=== PATIENT | female | born 1950 | race Two or more races ===

== ENCOUNTER 2025-02-23 16:28 | Emergency (ER) | payer OTHER, MEDICAID ==
[~2025-02-23] VITALS: Ht 154.9 cm; Wt 72.6 kg
[2025-02-23 17:28] LABS: HEMATOCRIT 35 % (33-45); LYMPHOCYTES # (AUTO) 1.2 K/uL (0.8-4.8); LYMPHOCYTES % (AUTO) 25.6 % (20.0-44.0); MEAN CORPUSCULAR HEMOGLOBIN 24 PG (26.0-33.0); MEAN CORPUSCULAR HGB CONC 32 g/dl (31.0-36.0); MEAN CORPUSCULAR VOLUME 75 fL (82-100); MONOCYTES # (AUTO) 0.3 K/uL (0.1-1.30); MONOCYTES % (AUTO) 6.3 % (2.0-12.0); NEUTROPHILS # (AUTO) 3.1 K/uL (1.8-8.9); NEUTROPHILS % (AUTO) 66.1 % (43.0-81.0); PLATELET COUNT (AUTO) 219 K/uL (150-450); RED CELL DISTRIBUTION WIDTH 18.6 % (11.5-15.0); WHITE BLOOD COUNT (AUTO) 4.7 K/uL (4.3-11.0)
[2025-02-23] MEDS ORDERED: MORPHINE SULFATE INJ 4 MG/ML DISP.SYRIN ONE (17:32)
[2025-02-23] MEDS: MORPHINE SULFATE INJ 2 MG/ML DISP.SYRIN IV ONE (17:37)
[2025-02-23 17:42] LABS: INR 1.13 (0.91-1.10); PARTIAL THROMBOPLASTIN TIME 43.1 SEC (24.3-34.3); PROTHROMBIN TIME 11.9 SECS (9.2-11.1)
[2025-02-23 17:51] LABS: ALANINE AMINOTRANSFERASE 15 U/L (12-78); ALBUMIN 3.5 g/dL (3.4-5.0); ALKALINE PHOSPHATASE 82 U/L (46-116); ASPARTATE AMINOTRANSFERASE 12 U/L (15-37); BILIRUBIN,DIRECT 0.1 mg/dL (0.0-0.2); BILIRUBIN,TOTAL 0.3 mg/dL (0.2-1.0); CALCIUM, SERUM 8.7 mg/dL (8.5-10.1); CARBON DIOXIDE 27 mmol/L (21-32); CHLORIDE 106 mmol/L (98-107); GLUCOSE 102 mg/dL (74-106); NT-PRO BNP 2493 pg/mL (0-125); POTASSIUM 3.8 mmol/L (3.5-5.1); SODIUM SERUM 141 mmol/L (136-145); TOTAL PROTEIN, SERUM 7.1 g/dL (6.4-8.2); UREA NITROGEN, BLOOD 24 mg/dL (7-18)
[2025-02-23] MEDS ORDERED: FUROSEMIDE 40 MG/4 ML VIAL ONE (18:32)
[2025-02-23] MEDS ORDERED: LORAZEPAM INJ 2 MG/ML VIAL ONE (18:34)
[2025-02-23] MEDS: LORAZEPAM INJ 2 MG/ML VIAL IV ONE (18:45)
[2025-02-23] MEDS: FUROSEMIDE 40 MG/4 ML VIAL IV ONE (18:45)
[2025-02-23] MEDS ORDERED: TROS20TA3 PO (18:48)
[2025-02-23] MEDS ORDERED: PANT20TA17 PO (18:48)
[2025-02-23] MEDS ORDERED: SENN-261 PO (18:48)
[2025-02-23] MEDS ORDERED: DULO30CA52 PO (18:48)
[2025-02-23] MEDS ORDERED: LORA-258 PO (18:48)
[2025-02-23] MEDS ORDERED: TRAZ-182 PO (18:48)
[2025-02-23] MEDS ORDERED: BUSP10TA3 PO (18:48)
[2025-02-23] MEDS ORDERED: CARB-273 EACHEYE (18:48)
[2025-02-23] MEDS ORDERED: AMLO-212 PO (18:48)
[2025-02-23] MEDS ORDERED: LIDO30CR47 TP (18:48)
[2025-02-23] MEDS ORDERED: SIME80TA15 PO (18:48)
[2025-02-23] MEDS ORDERED: ESCI5TAB PO (18:48)
[2025-02-23] MEDS ORDERED: BUSP10TA35 PO (18:48)
[2025-02-23] MEDS ORDERED: EMPA25TA PO (18:48)
[2025-02-23] MEDS ORDERED: DICL100G34 TP (18:48)
[2025-02-23] MEDS ORDERED: ACET500C4 PO ×2 (18:48)
[2025-02-23] MEDS ORDERED: MECL-159 PO (18:48)
[2025-02-23] MEDS ORDERED: DABI150C PO (18:48)
[2025-02-23] MEDS ORDERED: CHOL200010 PO (18:48)
[2025-02-23] MEDS ORDERED: LOSA25TA27 PO (18:48)
[2025-02-23] MEDS ORDERED: KETO5DRO72 EACHEYE (18:48)
[2025-02-23] MEDS ORDERED: KETOROLAC TROMETHAMINE INJ 30 MG/ML VIAL ONE (22:00)
[2025-02-23] MEDS: KETOROLAC TROMETHAMINE INJ 30 MG/ML VIAL IV ONE (22:02)
[2025-02-23 23:00] VITALS: TEMP 98
[2025-02-24 02:41] VITALS: BP 137/69; O2SAT 97
== END 2025-02-24 02:49 | disposition short-term general hospital (02) ==
LOC: ER 16:40
DX: I50.9 Heart failure, unspecified (principal); R06.00 Dyspnea, unspecified; R60.0 Localized edema; E78.5 Hyperlipidemia, unspecified; F32.A Depression, unspecified; F41.9 Anxiety disorder, unspecified; Z79.02 Long term (current) use of antithrombotics/antiplatelets; Z79.84 Long term (current) use of oral hypoglycemic drugs; Z79.899 Other long term (current) drug therapy; Z86.711 Personal history of pulmonary embolism
CPT/HCPCS: 99291; 93970; 96374; 96375; 93005; 71045; 85025; 80048; 80076; 85378; 36415; 84484 ×2; 85730; 83880; J1885; J2060; J1938; J2270